=== PATIENT | female | born 1955 | race Caucasian/White ===

== ENCOUNTER 2018-02-28 13:43 | Outpatient (CLI) | payer MEDICARE, OTHER ==
[2014-03-27 20:04] VITALS: BP 154/69
[2018-02-28 14:19] LABS: BASOPHILS % 0.9 (0.0-1.5); EOSINOPHILS % 2.9 % (0.0-6.8); MEAN CORPUSCULAR HEMOGLOBIN 30.3 pg (28.0-34.0); MEAN CORPUSCULAR VOLUME 91.3 fl (80.0-100.0); MONOCYTES % 5.5 % (0.0-11.0); NEUTROPHILS # 4.1 # k/uL (1.4-7.7)
--- NOTE | 2018-02-28 17:52 | Diagnostic Imaging Report ---
KADIE GUTIERREZ [facility] [address] [facility] [address] [address] Report Submission Date: Feb 28, 2018 2:23:27 PM CDT Patient Study Name: SRIDEVI SHIPMAN Date: Feb 28, 2018 1:53:41 PM CDT Modality Type: DX Gender: F Description: CHEST : 53 Institution: [facility] Physician: KADIE GUTIERREZ Examination: PA and lateral chest. History: Evaluate lung garcia. Comparison exam: None provided. Findings: PA lateral chest demonstrate a normal cardiac and mediastinal silhouette. Elevated right hemidiaphragm. No focal infiltrate. No blunting of the costophrenic margins. Osseous structures are appropriate for age. Impression: No acute pulmonary process. Electronically signed on Feb 28, 2018 2:23:27 PM CDT by: Mathew ARTHUR
== END 2018-02-28 13:44 ==
LOC: LAB 13:43
PROVIDERS: ATTEND Physician Assistant
DX: R05 Cough (principal); R50.9 Fever, unspecified
CPT/HCPCS: 36415; 71046; 85025